=== PATIENT | male | born 1945 | race Caucasian/White ===

== ENCOUNTER 2017-11-30 14:48 | Emergency (ER) | payer MEDICARE, MEDICAID ==
[2017-11-30 14:51] VITALS: BMI 31.1
[2017-11-30 14:58] VITALS: TEMP 98.7; O2SAT 98
--- NOTE | 2017-11-30 15:17 | ED PDOC ---
Arrival/HPI - General Historian: Patient <Sam Quinn - Last Filed: 11/30/17 16:14> - History of Present Illness Time/Duration: 1-3 hours Symptom Onset: Sudden Symptom Course: Unchanged Quality: Stabbing Severity Level: 9 Activities at Onset: Light Context: Home, Slipped (shower) <Clif Goel - Last Filed: 11/30/17 18:32> - General Chief Complaint: Trauma Time Seen by Provider: 11/30/17 14:50 - History of Present Illness Narrative History of Present Illness (Text): 11/30/17 15:22 CC: Fall HPI: Mr. Gutierrez is a 72 year old M with PMHx includes Hypertension and CAD (2 stents), DM2 presents to the emergency department stats post fall in the shower. Patient states he slipped in the shower earlier this afternoon. Fell on R side over edge of shower, and describes pain as "sharp" that makes him unable to take a deep breath. No relieving/exacerbating factors. Denies nausea, vomiting, diarrhea, fevers, chills, hitting his head, loss of consciousness, urinary or bowel incontinence. [employer] Operator Malissa Scott MD. PMD Dr. Alisa MD. (Clif Goel) Past Medical History - Provider Review Nursing Documentation Reviewed: Yes - Travel History Have you recently traveled outside [place] w/in the past 3 mons?: No - Infectious Disease Hx of Infectious Diseases: None - Tetanus Immunization Tetanus Immunization: Unknown - Past Medical History Past Medical History: No Previous - Cardiac Hx Hypertension: Yes - Pulmonary Hx Respiratory Disorders: No - Neurological Hx Neurological Disorder: Yes Hx Dizziness: Yes - HEENT Hx HEENT Disorder: No - Renal Hx Renal Disorder: No - Endocrine/Metabolic Hx Diabetes Mellitus Type 2: Yes - Hematological/Oncological Hx Blood Disorders: No - Integumentary Hx Dermatological Disorder: No - Musculoskeletal/Rheumatological Hx Falls: No - Gastrointestinal Hx Gastrointestinal Disorders: No - Genitourinary/Gynecological Hx Genitourinary Disorders: No - Psychiatric Hx Substance Use: No - Past Surgical History Past Surgical History: No Previous - Surgical History Hx Cardiac Catheterization: Yes Hx Coronary Stent: Yes (ptca/stent x2 08/2013) - Anesthesia Hx Anesthesia: Yes Hx Anesthesia Reactions: No Hx Malignant Hyperthermia: No - Suicidal Assessment Feels Threatened In Home Enviroment: No <Clif Goel - Last Filed: 11/30/17 18:32> Family/Social History - Physician Review Nursing Documentation Reviewed: Yes Family/Social History: Unknown Family HX Smoking Status: Former Smoker Hx Alcohol Use: No Hx Substance Use: No <KeelanClif issa - Last Filed: 11/30/17 18:32> Allergies/Home Meds <Sam Quinn - Last Filed: 11/30/17 16:14> <JevonClif issa - Last Filed: 11/30/17 18:32> Allergies/Adverse Reactions: Allergies No Known Allergies Allergy (Verified 08/15/13 14:28) Home Medications: Home Meds Medication Instructions Recorded Confirmed Atorvastatin [Lipitor] 10 mg PO DAILY 01/24/14 06/19/15 Clopidogrel [Plavix] 75 mg PO DAILY 01/24/14 06/19/15 Donepezil HCl [Aricept Odt] 10 mg PO DAILY 01/24/14 06/19/15 Tamsulosin [Flomax] 0.4 mg PO DAILY 01/24/14 06/19/15 Aspirin [Ecotrin] 81 mg PO DAILY 06/16/15 06/19/15 Diclofenac Sodium [Voltaren] 75 mg PO DAILY 06/16/15 06/16/15 Fluticasone Propionate [Flonase] 1 spr NS DAILY PRN 06/16/15 06/16/15 Furosemide [Lasix] 20 mg PO DAILY 06/16/15 06/19/15 Gabapentin [Neurontin] 100 mg PO DAILY 06/16/15 06/19/15 Losartan Potassium 25 mg PO DAILY 06/16/15 06/19/15 Meloxicam 15 mg PO DAILY 06/16/15 06/16/15 Metoprolol Tartrate [Lopressor] 25 mg PO BID 06/16/15 06/19/15 Primidone [Mysoline] 50 mg PO DAILY 06/16/15 06/19/15 Ranolazine [Ranexa] 500 mg PO BID 06/16/15 06/16/15 amLODIPine [Norvasc] 10 mg PO DAILY 06/16/15 06/19/15 Review of Systems - Review of Systems Constitutional: Normal Eyes: Normal ENT: Normal Respiratory: SOB (upon deep breath) Cardiovascular: Normal. absent: Chest Pain, Palpitations Gastrointestinal: Normal Musculoskeletal: Other (R sided rib pain) Neurological: absent: Headache, Dizziness <Clif Goel - Last Filed: 11/30/17 18:32> Physical Exam Vital Signs Reviewed: Yes Temperature: Afebrile Blood Pressure: Normal Pulse: Regular Respiratory Rate: Normal Appearance: Positive for: Non-Toxic, Uncomfortable Pain Distress: Severe Mental Status: Positive for: Alert and Oriented X 3 - Systems Exam Head: Present: Atraumatic, Normocephalic. No: Tenderness, Contusion, Swelling Pupils: Present: PERRL Extroacular Muscles: Present: EOMI Neck: Present: Normal Range of Motion. No: MIDLINE TENDERNESS, Paraspinal Tenderness Respiratory/Chest: Present: Clear to Auscultation, Good Air Exchange, Tender to Palpation (R flank along lower ribs). No: Respiratory Distress, Accessory Muscle Use, Wheezes Cardiovascular: Present: Regular Rate and Rhythm, Normal S1, S2 Abdomen: No: Tenderness, Distention Back: Present: Normal Inspection. No: CVA Tenderness, Midline Tenderness, Paraspinal Tenderness Upper Extremity: Present: Normal Inspection Lower Extremity: Present: Normal Inspection Psychiatric: Present: Alert, Oriented x 3, Normal Insight, Normal Concentration <Clif Goel - Last Filed: 11/30/17 18:32> Vital Signs Temp Pulse Resp BP Pulse Ox 11/30/17 14:57 98.7 F 68 16 128/77 98 Medical Decision Making <Sam Quinn - Last Filed: 11/30/17 16:14> <Clif Goel - Last Filed: 11/30/17 18:32> ED Course and Treatment: 11/30/17 16:14 Patient Seen With Resident: In agreement with resident note. Patient was seen and evaluated with resident, came up with plan and treatment together. 72 year old male presents to the emergency department complaining of rib pain s/ p fall. (Sam Quinn) 11/30/17 15:04 Impression: 72 M s/p mechanical slip and fall in bathrub. Denies trauma to head and LOC. Fell on R flank, complaining of rib pain. Plan: Toradol 30 mg for pain control CXR, R Rib series 11/30/17 16:04 Upon reassessment, patient reports improvement and current control of pain. EKG Sinus rhythm @ 70 bpm with occasional PVCs. No chest pain, palpitations, dizziness or weakness. 11/30/17 16:46 CXR HISTORY: r/o rib fracture s/p fall COMPARISON: 06/16/2015 FINDINGS: LUNGS: No active pulmonary disease. PLEURA: No significant pleural effusion identified, no pneumothorax apparent. CARDIOVASCULAR: Normal heart size. Sternotomy wires. No congestive change. OSSEOUS STRUCTURES: No significant abnormalities. VISUALIZED UPPER ABDOMEN: Normal. OTHER FINDINGS: None. IMPRESSION: No active disease. 11/30/17 18:10 PROCEDURE: Right ribs HISTORY: fall COMPARISON: Not available TECHNIQUE: Three views of right ribs. No chest radiograph submitted. FINDINGS: Minimally displaced fracture right 8th rib, laterally. No additional fracture identified. IMPRESSION: Fracture right 8th rib laterally. Patient outfitted with lidoderm patch over 8th rib. Discussed imaging results with patient in detail. Urged patient to follow up in clinic or with PMD within week to assess for improvement. Patient to be given incentive spirometer and pain medication upon discharge. Displayed proper technique and need to use it hourly to prevent pneumonia due to the pain caused by deep breaths. Patient understood utility and plans to use it as prescribed. Patient hemodynamically stable and prepared for discharge. (Clif Goel) - RAD Interpretation Radiology Orders: 11/30/17 15:10 CHEST PORTABLE [RAD] Stat 11/30/17 15:15 RIBS RIGHT [RAD] Stat - Medication Orders Current Medication Orders: Discontinued Medications Ketorolac Tromethamine (Toradol) 30 mg IM STAT STA Stop: 11/30/17 15:08 Last Admin: 11/30/17 15:28 Dose: 30 mg MAR Pain Assessment Document 11/30/17 15:28 EQ (Rec: 11/30/17 15:28 EQ [id number]) Pain Reassessment Is this a pain reassessment? No Sleep Is patient sleeping during reassessment? No Presence of Pain Presence of Pain Yes IM Administration Charges Document 11/30/17 15:28 EQ (Rec: 11/30/17 15:28 EQ [id number]) Charges for Administration # of IM Administrations 1 Lidocaine (Lidoderm) 1 ea TD STAT STA Stop: 11/30/17 18:13 Disposition/Present on Arrival <Sam Quinn - Last Filed: 11/30/17 16:14> - Present on Arrival Any Indicators Present on Arrival: No History of DVT/PE: No History of Uncontrolled Diabetes: No Urinary Catheter: No History Surgical Site Infection Following: None - Disposition Have Diagnosis and Disposition been Completed?: Yes Disposition Time: 18:24 Patient Plan: Discharge <Clif Goel - Last Filed: 11/30/17 18:32> - Disposition Diagnosis: Rib fracture Disposition: HOME/ ROUTINE Patient Problems: Current Active Problems Problem Status Onset Rib fracture Acute Condition: IMPROVED Discharge Instructions (ExitCare): Rib Fracture (DC) Print Language: BELARUSIAN Additional Instructions: Please follow up in clinic or with PMD within week to assess for improvement. Please take pain medication as prescribed. Please utilize incentive spirometer 10 times hourly to prevent pneumonia due to the pain caused by deep breaths. If symptoms worsen or reoccur, please visit nearest emergency department. UNA GUTIERREZ, thank you for letting us take care of you today. Your provider was Sam Quinn DO and you were treated for rib fracture. The emergency medical care you received today was directed at your acute symptoms. If you were prescribed any medication, please fill it and take as directed. It may take several days for your symptoms to resolve. Return to the Emergency Department if your symptoms worsen, do not improve, or if you have any other problems. Please contact your doctor or call one of the physicians/clinics you have been referred to that are listed on the Patient Visit Information form that is included in your discharge packet. Bring any paperwork you were given at discharge with you along with any medications you are taking to your follow up visit. Our treatment cannot replace ongoing medical care by a primary care provider outside of the emergency department. Thank you for allowing the [facility] team to be part of your care today. If you had an X-Ray or CT scan: A Radiologist will review the ED reading if any change in treatment is needed we will contact you. If you had a blood, urine, or wound culture: It will take several days for the results, if any change in treatment is needed we will contact you. If you had an STI test: It will take 48 hours for the results. Please call after 1 week if you have not heard back. Prescriptions: Ibuprofen [Motrin] 600 mg PO Q6 #20 tab Referrals: Eliana Cuellar MD [Primary Care Provider] - Follow up with primary Forms: [employer] [place]
--- NOTE | 2017-11-30 16:44 | RAD ---
Date of service: 11/30/2017 HISTORY: r/o rib fracture s/p fall COMPARISON: 06/16/2015 FINDINGS: LUNGS: No active pulmonary disease. PLEURA: No significant pleural effusion identified, no pneumothorax apparent. CARDIOVASCULAR: Normal heart size. Sternotomy wires. No congestive change. OSSEOUS STRUCTURES: No significant abnormalities. VISUALIZED UPPER ABDOMEN: Normal. OTHER FINDINGS: None. IMPRESSION: No active disease.
--- NOTE | 2017-11-30 18:01 | RAD ---
Date of service: 2017-11-30 16:55:05 PROCEDURE: Right ribs HISTORY: fall COMPARISON: Not available TECHNIQUE: Three views of right ribs. No chest radiograph submitted. FINDINGS: Minimally displaced fracture right 8th rib, laterally. No additional fracture identified. IMPRESSION: Fracture right 8th rib laterally.
[2017-11-30] MEDS ORDERED: Lidocaine 5% Patch TD STA (18:12)
[2017-11-30 18:44] VITALS: BP 126/80; PULSE 72; RESP 18
--- NOTE | 2017-12-01 19:58 | CARD ---
APPROVED REPORT Date of service: 11/30/2017 EKG Measurement Heart [id number] <Conclusion> Sinus rhythm with occasional premature ventricular complexes Otherwise normal ECG
== END 2017-11-30 18:54 | disposition home or self-care (01) ==
LOC: ED 14:48
DX: S22.31XA Fracture of one rib, right side, initial encounter for closed fracture (principal); W18.2XXA Fall in (into) shower or empty bathtub, initial encounter; Y93.E1 Activity, personal bathing and showering; E11.9 Type 2 diabetes mellitus without complications; I10 Essential (primary) hypertension; I25.10 Atherosclerotic heart disease of native coronary artery without angina pectoris; Z87.891 Personal history of nicotine dependence
CPT/HCPCS: 71045; 71100; 93005; 96372; 99284; J1885